=== PATIENT | female | born 1995 ===

== ENCOUNTER 2024-11-15 07:02 | Inpatient (IN) ==
[2024-11-15] MEDS ORDERED: SODIUM CHLORIDE FLUSH 0.9% 10 ML SYRINGE IVP PRN (07:12)
[2024-11-15] MEDS ORDERED: lidocaine 1% 20 ML MDV ID PRN (07:12)
[2024-11-15] MEDS ORDERED: TERBUTALINE 1 MG/ML VIAL SUBQ PRN (07:12)
[2024-11-15] MEDS ORDERED: miSOPROStoL 200 MCG TABLET BC PRN (07:12)
[2024-11-15] MEDS ORDERED: LABETALOL 20 MG/4 ML SYRINGE IVP PRN ×3 (07:12)
[2024-11-15] MEDS ORDERED: miSOPROStoL 200 MCG TABLET PR PRN (07:12)
[2024-11-15] MEDS ORDERED: NIFEdipine 10 MG CAPSULE PO PRN (07:12)
[2024-11-15] MEDS ORDERED: fentaNYL 100 MCG/2 ML VIAL IVP PRN (07:12)
[2024-11-15] MEDS ORDERED: LACTATED RINGERS 1,000 ML IV PRN (07:12)
[2024-11-15] MEDS ORDERED: hydrALAZINE INJ 20 MG/ML VIAL IVP PRN (07:12)
[2024-11-15] MEDS ORDERED: miSOPROStoL 200 MCG TABLET ONE (07:18)
[2024-11-15] MEDS ORDERED: OXYTOCIN 10 UNIT/ML VIAL ONE (07:18)
[2024-11-15] MEDS ORDERED: OXYTOCIN/SODIUM CHLORIDE 500 ML IV ONE (07:18)
[2024-11-15] MEDS ORDERED: TRANEXAMIC ACID IN NACL 1,000 MG/100 ML BAG IV ONE (07:18)
[2024-11-15] MEDS ORDERED: LACTATED RINGERS 1,000 ML ONE (07:18)
[2024-11-15] MEDS: OXYTOCIN 10 UNIT/ML VIAL IM PRN (08:04)
[2024-11-15] MEDS: OXYTOCIN/SODIUM CHLORIDE 500 ML IV PRN (08:10)
[2024-11-15] MEDS: TRANEXAMIC ACID IN NACL 1,000 MG/100 ML BAG IV PRN (08:16)
[2024-11-15] MEDS: METHYLERGONOVINE 0.2 MG/ML VIAL IM PRN (08:20)
[2024-11-15] MEDS ORDERED: SIMETHICONE CHEW 80 MG TABLET PO PRN (08:29)
[2024-11-15] MEDS: ACETAMINOPHEN 500 MG TABLET PO PRN (09:02)
[2024-11-15 09:34] LABS: BASOPHILS % (AUTO) 0.1 %; EOSINOPHILS % (AUTO) 0.2 %; HCT - HEMATOCRIT 34.5 % (37.0-47.0); HGB - HEMOGLOBIN 10.1 g/dL (12.0-16.0); LYMPHOCYTES # (AUTO) 1.1 10^3/uL (1.5-3.5); LYMPHOCYTES % (AUTO) 10.6 %; MEAN CORPUSCULAR HEMOGLOBIN 24.5 pg (27.0-31.0); MEAN CORPUSCULAR HGB CONC 29.3 g/dL (32.0-36.0); MEAN CORPUSCULAR VOLUME 83.7 fL (81.0-99.0); MEAN PLATELET VOLUME 11.8 fL (7.9-10.8); MONOCYTES # (AUTO) 0.4 10^3/uL (0.0-1.0); MONOCYTES % (AUTO) 4.2 %; NEUTROPHILS # (AUTO) 8.4 10^3/uL (1.5-6.6); NEUTROPHILS % (AUTO) 84.5 %; PLT - PLATELET COUNT 218 10^3/uL (130-450); RED BLOOD COUNT 4.12 10^6/uL (4.20-5.40); RED CELL DISTRIBUTION WIDTH 15.4 % (12.0-15.0)
[2024-11-15] MEDS: SODIUM CHLORIDE FLUSH 0.9% 10 ML SYRINGE IVP SCH (10:37)
--- NOTE | 2024-11-15 11:13 | HISTORY & PHYSICAL EXAMINATION ---
Admit History Smoking Status: Never smoker HPI Current : Vital Signs Temperature 36.7 C 11/15/24 08:15 Pulse Rate 72 11/15/24 09:31 Respiratory Rate 14 11/15/24 07:44 Blood Pressure 101/77 11/15/24 09:31 Meds/Allgy Home Medications Ambulatory Orders Medication Instructions Recorded Confirmed vits no.126-ferrous fum tab PO 09/15/24 11/10/24 28 mg iron-folic acid 800 mcg tablet (Classic ) Allergies Allergies Allergy/AdvReac Type Severity Reaction Status Date / Time No Known Drug Allergies Allergy Verified 11/10/24 14:04 [facility] Social History Social History (Updated 09/15/24 @ 14:10 by Jyoti Grewal MA) Smoking Status: Never smoker Physical Abdominal Exam Vital Signs: Temp Pulse Resp BP 36.7 C 72 14 101/77 11/15/24 08:15 11/15/24 09:31 11/15/24 07:44 11/15/24 09:31 Plan for Labor Plan For Labor I expect patient to be DC'd or transferred within 96 hours.: Yes Plan for Labor: Patricia is a 29yo @ 39.2wks gestation who presents to [facility] in active labor. She reports onset of contractions this morning at 0400 that woke her from sleep. She states they quickly increased in frequency and intensity and were very soon 3 minutes apart. She denies vaginal bleeding or leakage of fluid. FHR baseline 140s, moderate variability, + accels, no decels. Contractions palpate strong every 2-3 minutes with soft resting tone. SVE c/c/0 upon arrival. Patricia has been a patient of [facility] since her transfer of care at 30.4wks gestation from [place]. She has received consistent care for the duration of her which has remained uncomplicated. She will be admitted to expectant management. She is supported by her Everardo. Dating criteria: LMP: 02/14/2024 JOSEPH by LMP: 11/20/2024 U/S: Final JOSEPH: 11/20/2024 G-2P-1 Allergies: NKDA RX: PNV, Magnesium Medical Hx: No significant Sugical Hx: None Family Hx: No significant Social Hx: Never smoker. No ETOH or IVDA. Everardo active [employer] [place]. Pt reports she is safe in current relationship. 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 Problems: TIEN @ 30+4 weeks. GBS+ in urine first trimester. FOB: : Everardo Blood type: O+ Antibody screen: neg CBC: PLT 308, HCT 40.2, HGB:12.7, HGB electrophoresis normal. rubella: immune VZV: immune HBsAg: neg HepC: neg RPR/AB-EIA: neg HIV: neg Flu: 07/02/24 COVID: declines PAP: 04/18/24 NILM HPV negative GC/CT: NEG HSV: denies self/partner Genetic Testing: M21: Neg, AFP neg, CF screening neg 11/05/2020 FAS: WNL Placenta: anterior CLIFFORD: MVP within normal limits EFW: 983gm, 79% 50gm GCT: 121 TDAP: 09/15/2024 Breast Pump: recv'd GBS: + on urine in first trimester Physical exam: Normocephalic, atraumatic Heart RRR w/o M/G/R Lungs CTAB Abdomen gravid, soft, nontender. EFW 3500g FHR baseline 140s, moderate variability, + accels, no decels Contractions palpate strong every 2-3 minutes with soft resting tone SVE c/c/0 and vertex with intact membranes Bilateral LE's trace edema Mood is good Assessment: 29yo @ 39.2wks gestation by LMP Active labor GBS positive FHR Category I Plan: Admit to [facility] for expectant management. Continuous monitoring. Nitrous oxide per pt request. Anticipate . Conclusion/Plan Lab Results 11/15/24 08:10
--- NOTE | 2024-11-15 11:35 | DELIVERY NOTE ---
Delivery Note Delivery Outcome Delivery Date: 11/15/24 Delivery Time: 07:38 Delivery Comments (Free Text/Narrative) Delivery Comments (Free Text/Narrative): Labor: This 29yo @ 39.2 wks gestation by LMP presented to [facility] in active labor. Cervix was c/c/0 and vertex with intact membranes at 0710. FHR demonstrated Category I pattern thr FOB. Cord blood was obtained. 3VC. Fundal massage and gentle cord traction applied for active management of the third stage. Placenta delivered spontaneously and intact at 0759. Secondary to increased rate of vaginal bleeding IV access was obtained and pitocin was initiated via IV for hemostasis. In addition, TXA and methergerine were administered. QBL 1061mL. Fourth stage: Following administration of additional uterotonic agents the uterine fundus was noted to be firm and there is no continued excessive bleeding. The perineum, vagina, and cervix were inspected and found to be intact. There was noted to be a superficial perineal separation near vaginal introitus which was hemostatic and left unrepaired. Tissues well approximated. Skin to skin contact maintained. Both mother and baby were left in stable condition.
[2024-11-15] MEDS: DOCUSATE SODIUM 100 MG CAPSULE PO SCH (11:37)
[2024-11-16 02:14] VITALS: O2SAT 98
[2024-11-16] MEDS: IBUPROFEN 600 MG TABLET PO PRN (05:29)
--- NOTE | 2024-11-16 09:03 | Discharge Summary ---
Discharge Summary HOSPITAL COURSE Hospital Course: Date of Admission: 11/15/2024 Date of Discharge: 11/16/2024 Diagnosis on admission: 29yo @ 39.2wks gestation by LMP Active labor GBS positive FHR Category I Diagnosis on Discharge 29 yo s/p @ 39+2 weeks S/P hemorrhage QBL 1061 Intact perineum Physical exam: Normocephalic, atraumatic Normal uterine involution, FF below umbilicus Small/ scant rubra bleeding perineal discomfort. Bilateral LE's no edema Mood is good. Brief History: She is a patient of [facility] since 30 weeks who presented at approximately 0700 on 11/15/2024 with complaints of contractions. She was c/c/o upon admission and delivered precipitously shortly thereafter. Labor progressed without medication pain management. She spontaneously delivered a viable male infant. Delivery complicated by hemorrhage, EBL 1061ml. Intact perineum. She has been doing well in her course. She is ambulating and tolerating a regular diet. She has not been experiencing any lightheadedness or dizziness. She is urinating without difficulty and her lochia is normal. Her pain is well controlled without narcotic management. She will be discharged to home today on day 1 and encouraged IBU, tylenol and stool softeners PRN. She intends to follow up with [facility] in 1 week for telehealth. She has been given precautions to call if she has any new or worsening sx such as fevers, chills, abdominal pain, increasing bleeding, or foul smelling vaginal lochia. preeclamptic precautions reviewed as well. ALLERGIES Allergies Allergy/AdvReac Type Severity Reaction Status Date / Time No Known Drug Allergies Allergy Verified 11/15/24 11:53 MEDICATIONS Ambulatory Orders Medication Instructions Recorded Confirmed vits no.126-ferrous fum 1 tab PO DAILY 09/15/24 11/16/24 28 mg iron-folic acid 800 mcg tablet (Classic ) LABS 11/15/24 08:10 Discharge Plan Discharge Patient Disposition: Home, Self Care Prescriptions: Continued Classic 28 mg iron- 800 mcg tablet 1 tab PO DAILY Activity Restrictions: Activity as Tolerated Diet: Regular Print Language: Thai Patient Instructions: Follow-up Care: Veronica Ann CNM, [employer] [Primary Care Provider] -
--- NOTE | 2024-11-16 10:17 | PHARMACY PROGRESS NOTE ---
Best Possible Medication History Admit Date and Time: 11/15/24 0712 Home Medications Medication Instructions Recorded Confirmed Type vits no.126-ferrous fum 1 tab PO DAILY 09/15/24 11/16/24 History 28 mg iron-folic acid 800 mcg tablet (Classic ) Processed by: Pharmacy Medications reviewed in ED?: No Medication History completed: Yes Secondary Source(s): Physician records, Insurance records and Previous admit records [facility] Statement: As the person ultimately responsible for medication therapy, providers are able to order a medication from an existing home medication list in [facility] via the "Reconcile Routine" prior to Confirmation of that medication by home support worker. Such practice is discouraged except when the physician, in their clinical ju dgment, deems that a medical need exists for a medication without regard to previous use.
[2024-11-16 13:31] VITALS: TEMP 98.4
[2024-11-16 17:17] VITALS: BP 116/61
--- NOTE | 2024-11-16 18:52 | Labor Flowsheet ---
Labor Flowsheet Datetime Report Generated by CPN: 11/16/2024 18:52 Datetime: 11/16/2024 17:17 VITAL SIGNS NBP Sys/Sherice/Mean (mmHg): 116 : 61 : 73 Pulse: 77 Datetime: 11/16/2024 05:39 SpO2 (%): 97 Datetime: 11/15/2024 11:00 Stage of : Datetime: 11/15/2024 08:16 MEDICATIONS Medication Comments: TXA Datetime: 11/15/2024 08:10 Communication Comments: VO for IV pit per A.Marissa, CNM Datetime: 11/15/2024 08:09 Patient Care Comments: IV in Datetime: 11/15/2024 07:56 Membranes Ruptured Date/Time: 11/15/2024 07:26 Datetime: 11/15/2024 07:35 Comments: FHT 140 Datetime: 11/15/2024 07:30 ASSESSMENT A Monitor Mode: Telemetry Datetime: 11/15/2024 07:26 VAGINAL EXAM Membrane Status: Ruptured Membranes Rupture Method: Spontaneous Amniotic Fluid Color: Clear Amniotic Fluid Amount: Moderate Amniotic Fluid Odor: Normal STAGE 2 Pushing: Urge to Push Pushing Position: Pushing with Contractions Stage 2 Comments: pushing hands and knees Datetime: 11/15/2024 07:21 COMMUNICATION Communication: Provider at Bedside Datetime: 11/15/2024 07:20 Provider Notified (Name): A. Marissa, CNM Datetime: 11/15/2024 07:16 PATIENT CARE Patient Position/Activity: Standing
== END 2024-11-16 18:50 | disposition home or self-care (01) | DRG 807 ==
LOC: WFO 07:02 → FBP 07:07
PROVIDERS: ADMIT Nurse Practitioner Obstetrics & Gynecology; ATTEND Nurse Practitioner Obstetrics & Gynecology